=== PATIENT | female | born 1960 | race Caucasian/White ===

== ENCOUNTER → 2017-10-07 | Outpatient (CLI) | payer OTHER | END | disposition home or self-care (01) | LOC: PLD 09:04 → LAB SHORT 09:04 | DX: D22.71 Melanocytic nevi of right lower limb, including hip (principal) | CPT/HCPCS: 88305 ==

== ENCOUNTER 2020-12-07 15:02 | Emergency (ER) | payer OTHER ==
[~2020-12-07] VITALS: Ht 154.9 cm; Wt 56.7 kg
[2020-12-07] MEDS ORDERED: ACETAMINOPHEN500 MG PO (15:54)
== END 2020-12-07 16:01 | disposition home or self-care (01) ==
LOC: ER 15:02
DX: M79.605 Pain in left leg (principal); F17.200 Nicotine dependence, unspecified, uncomplicated; Z88.2 Allergy status to sulfonamides
CPT/HCPCS: 93971; 99284-25

== ENCOUNTER → 2021-12-15 | Outpatient (CLI) | payer OTHER ==
[~2021-12-15] MED LIST: ACETAMINOPHEN500 MG PO
== END ==
LOC: LAB SHORT 13:30
DX: N39.0 Urinary tract infection, site not specified (principal)

== ENCOUNTER 2024-09-28 08:20 | Day surgery (SDC) | payer OTHER ==
[2024-09-28] VITALS (7 sets, daily range): BP systolic 114–131; BP diastolic 68–111
[~2024-09-28] VITALS: Ht 154.9 cm; Wt 57.0 kg
[~2024-09-28 08:20] MED LIST changes: +ALBU90OI INH; +FLUT.05NI; +Flonase 0.05% N16 GM; +LEVOTHYROXINE125 MCG PO; +Lovastatin20 MG PO; +OMEP20ER PO; +PROG100 PO; +Ropinirole HCl0.5 MG PO; +Ventolin5 MG/1 ML
[2024-09-28] MEDS ORDERED: LEVSOD150 PO (09:06)
[2024-09-28] MEDS ORDERED: DOCU100 PO (09:06)
[2024-09-28] MEDS ORDERED: NS 1,000 ML IV ONE ×2 (09:33→09:38)
[2024-09-28] MEDS ORDERED: Heparin Sodium 1000 Units/ML 10ML MDV ONE (09:33)
[2024-09-28] MEDS ORDERED: Verapamil HCL 2.5 MG/ML 2ML Injection ONE (09:33)
[2024-09-28] MEDS ORDERED: NS 250 ML IV ONE (09:33)
[2024-09-28] MEDS ORDERED: Midazolam HCl 1MG / ML 2ML Vial ONE (09:38)
[2024-09-28] MEDS ORDERED: FentaNYL Citrate 50 MCG/ML 2 ML Injection ONE (09:38)
--- NOTE | 2024-09-28 11:01 | NUR ---
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
--- NOTE | 2024-09-28 11:44 | NUR ---
SITE REMAINS INTACT WITH PULSES DISTAL/PROXIMAL TO SITE, NO SWELLING, REDNESS, DISCOLORATION, PAIN OR FIRMNESS NOTED. VSS, TV SET UP FOR PATIENT, PATIENT ATE, DENIES NEEDS, PENDING TR BAND REMOVAL.
--- NOTE | 2024-09-28 12:07 | NUR ---
2 ML FROM TR BAND; SITE REMAINS INTACT, NO CONCERNS.
--- NOTE | 2024-09-28 13:04 | NUR ---
TR BAND REMOVED, SITE REMAINED INTACT, DISCHARGE DISCUSSED WELL SITE MONITORING, CONCERNS FOR AMBULANCE, OR CALL/RETURN IF CONCERNS, SX TO LOOK FOR, GIVEN WRITTEN MATERIALS WELL. VSS, CLOTH DOT PLACED, IV'S REMOVED, LEFT VIA WHEELCHAIR, DRESSED SELF PRIOR, SITE INTACT AT D/C, MAINTAINS PRECAUTIONS, LEFT WITH AT 1300.
== END 2024-09-28 13:00 | disposition home or self-care (01) ==
LOC: MHTC 08:20
DX: I35.0 Nonrheumatic aortic (valve) stenosis (principal); E03.9 Hypothyroidism, unspecified; Z72.0 Tobacco use; Z79.899 Other long term (current) drug therapy; Z88.2 Allergy status to sulfonamides; Z88.8 Allergy status to other drugs, medicaments and biological substances
CPT/HCPCS: C1769; C1887; C1894; J1644; J2250; J3010; J7030; J7050

== ENCOUNTER 2025-01-29 09:18 | Emergency (ER) | payer OTHER ==
[~2025-01-29] VITALS: Ht 162.6 cm; Wt 68.0 kg
[~2025-01-29 09:18] MED LIST changes: +DOCU100 PO; +LEVSOD150 PO
[2025-01-29 09:25] VITALS: BP 142/83
== END 2025-01-29 09:51 | disposition home or self-care (01) ==
LOC: ER 09:18
DX: I10 Essential (primary) hypertension (principal); Z88.5 Allergy status to narcotic agent; Z88.2 Allergy status to sulfonamides; Z88.8 Allergy status to other drugs, medicaments and biological substances; Z59.89 Other problems related to housing and economic circumstances; Z79.899 Other long term (current) drug therapy
CPT/HCPCS: 99282